=== PATIENT | male | born 1960 | race African-American/Black ===

== ENCOUNTER 2021-07-30 16:54 | Emergency (ER) | payer SELFPAY ==
[2021-07-30] MEDS ORDERED: Ibuprofen 200 MG TAB ONE (18:45)
== END 2021-07-30 18:53 | disposition home or self-care (01) ==
LOC: CSHERS 16:54
DX: M25.511 Pain in right shoulder (principal)
CPT/HCPCS: 99284

== ENCOUNTER 2021-07-31 10:30 | Emergency (ER) | payer SELFPAY ==
[2021-07-31] MEDS ORDERED: Ketorolac Tromethamine 30 MG/ML VIAL ONE (10:52)
== END 2021-07-31 11:02 | disposition home or self-care (01) ==
LOC: CSHERS 10:30
DX: M25.512 Pain in left shoulder (principal); M25.511 Pain in right shoulder
CPT/HCPCS: 96372; J1885